=== PATIENT | female | born 1995 | race Caucasian/White ===

== ENCOUNTER 2016-08-18 23:14 | Emergency (ER) | payer OTHER ==
[~2016-08-18] VITALS: Ht 175.3 cm; Wt 118.2 kg
[2016-08-19 00:06] VITALS: BP 127/83; PULSE 91; RESP 16; O2SAT 99
[2016-08-19 00:45] LABS: APPEARANCE,URINE CLEAR (CLEAR,HAZY); COLOR,URINE YELLOW (YELLOW); OCCULT BLOOD,URINE MODERATE (NEGATIVE); PH,URINE 5.5 (5.0-8.0); UROBILINOGEN,URINE NORMAL (NORMAL)
--- NOTE | 2016-08-19 01:34 | ED.REPORT ---
HPI-Back Pain Under 40 Date of Service Aug 19, 2016 ED Provider: Avery Rodney MD Patient is a 21 year old female who reports to the ED complaining of lower back pain ongoing for the past month. She saw her pcp 3 weeks ago and was told her symptoms were due to menstrual cramps. She describes the pain as switching from the lower right to the lower left back and occasionally spasming . She denies any recent injury or accident that could have led to her symptoms and states that the pain does not feel musculoskeletal but more, "like an internal problem. " Pt has been stretching and taking ibuprofen to try to relieve symptoms with no improvement. She had an IUD inserted three days ago. Nursing Notes Stated Complaint: LOW BACK PAIN Chief Complaint: Back Pain or Injury Nursing Notes Reviewed: Yes Allergies: Uncoded Allergies: CODIENE (Allergy, Unknown, rash, 08/19/16) Scheduled PRN Cyclobenzaprine (Cyclobenzaprine) 10 Mg Tablet 10 MG PO TID PRN PRN Spasm General Time Seen by MD: 01:33 Chief Complaint Back pain Hx Obtained From: Patient Arrived By: Walk-in Sudden in Onset?: Yes Onset Occurred: More than a week ago... (1 month) Symptom Duration: Since onset Location: : Spinal lumbar area Radiation: : Does not radiate Severity: Current: Moderate Recent Healthcare: Recent doctor visit Similar Sx Previous: Yes Past Medical History Past Medical History denies Past Surgical History denies Smoking History Unknown if Ever Smoker Social History Other Social History: Good social support, Local resident Ambulatory Status Independent Review of Systems Musculoskeletal: Reports: Back pain (lumbar) Complete sys rev & neg: except as marked. Physical Exam Initial Vital Signs Vital Signs (First) Date Time Temp Pulse Resp B/P Pulse Ox O2 Delivery O2 Flow Rate FiO2 08/19/16 00:06 37.1 91 16 127/83 99 08/19/16 02:51 Room Air Initial VS: Reviewed, Vital signs normal Head / Eyes: Atraumatic, Normocephalic, PERRL ENT: Mucous membranes moist, Conjunctiva normal, No scleral icterus Neck: Supple, Non-tender, Full range of motion Respiratory: Breath sounds normal, Clear to auscultation, No respiratory distress Cardiovascular: Heart sounds normal, Intact distal pulses Abdomen / GI: Soft, Non-tender, No guarding, No rebound, No distention Lymphatic: No lymphadenopathy Extremities: Vascular intact, Neuro intact, No swelling, No tenderness Skin: Warm, Dry, No cyanosis Psychiatric: Mood/affect normal, Behavior normal, Normal thought content General/Constitutional: Awake, Alert, No acute distress, Well appearing, Well developed, Well hydrated, Well nourished, Cooperative, Not toxic appearing Back: No CVA tenderness Flank / Spine / Paraspinal: Positive: Lumbar spine tender... diffuse bilateral lower back tenderness S1 lower back tenderness no corine spine tenderness Interpretation & Diagnostics Lab Results Interpretation Test 08/19/16 00:32 Urine Color Yellow (YELLOW) Urine Appearance Clear (CLEAR,HAZY) Urine pH 5.5 (5.0-8.0) Urine Specific [place] 1.030 (1.003-1.035) Urine Protein Negativemg/dL (NEG,TRACE) Urine Glucose (UA) Negativemg/dL (NEGATIVE) Urine Ketones Negativemg/dL (NEGATIVE) Urine Occult Blood Moderate (NEGATIVE) Urine Nitrite Negative (NEGATIVE) Urine Bilirubin Negative (NEGATIVE) Urine Urobilinogen Normalmg/dL (NORMAL) Urine Leukocyte Esterase Negative (NEGATIVE) Urine RBC 3-10/hpf (0-2) Urine WBC 6-10/hpf (0-5) Urine Epithelial Cells Many/hpf (NONE-MOD) Urine Crystals None seen (NONE SEEN) Urine Bacteria None/hpf (NONE-FEW) Urine Hyaline Casts None/lpf (NONE) Urine Granular Casts None seen (NONE SEEN) Urine Waxy Casts None seen (NONE SEEN) Urine Red Blood Cell Casts None seen (NONE SEEN) Urine White Blood Cell Casts None seen (NONE SEEN) Urine Mucus None seen (None Seen) Urine Trichomonas None seen (NONE SEEN) Urine Yeast None (NONE SEEN) Urinalysis Comment Urine Culture Reflexed Indicated Lab Results Interpretation: Likely contaminated urine, await culture. Re-Eval/Medical Decision Med Decision/Clinical Course 21-year-old female with bilateral SI joint pain, well below the kidney areas. She does have 6-10 white cells per high-power field but too numerous to count epithelial cells and no bacteria seen, so we will await culture on that. Her history and physical exam are most consistent with musculoskeletal low back pain or SI joint pain. X-ray examination is normal. The pain preceded her IUD placement. It is also persisted well past her menstrual cycle. Ibuprofen and cyclobenzaprine. Follow up with primary doctor for further imaging if needed. Re-Evaluation/Progress : Time of Eval: 02:27 Patient Status: Condition unchanged Re-Evaluation/Progress Note: Pt rechecked. Pt is informed of diagnosis of lumbosacral pain and intended plan. All questions are addressed. Pt understands and agrees with the treatment plan. Counseled Regarding: Diagnosis, Lab results, Need for follow-up, When/why to return to ED Discharge & Departure Impression: Primary Impression: Lumbosacral strain Encounter type: initial encounter Qualified Code: S39.012A - Strain of muscle, fascia and tendon of lower back, initial encounter Disposition: Home All VS Reviewed: Yes Condition: Stable Patient Instructions: Low Back Strain (ED) Additional Instructions: X-ray examination looks good. No definite urinary tract infection, culture pending. The exact cause of your back pain is not known at this time but it appears to be musculoskeletal. Recommend physical therapy, continued ibuprofen , and further evaluation and treatment directed by your primary doctor. You may eventually need an MRI for this if the pain does not resolve with the above treatments. Referrals: Anjali Blanc PA-C (PCP) Scribe Attestation Portions of this note were transcribed by Maryana Avina. I, Dr. Rodney personally performed the history, physical exam and medical decision-making; I reviewed and confirmed the accuracy of the information in the transcribed note. Signed by: Tino Shaw, 08/19/16 [id number] copies to: Anjali Blanc PA-C, Howard L MD Aug 19, 2016 01:34 MARYANA AVINA Aug 19, 2016 01:46
[2016-08-19] MEDS ORDERED: CYCL10TA9 PO (02:47)
[2016-08-19 02:51] VITALS: BP 126/82; PULSE 90; RESP 18; O2SAT 99
--- NOTE | 2016-08-19 08:30 | DRSVH ---
PROCEDURE: X-RAY LUMBAR SPINE, 2 OR 3 VIEW INDICATIONS: 21 year-old female with low back pain for one month. TECHNIQUE: 3 views of the lumbar spine were acquired. COMPARISON: None. FINDINGS: Bones: 5 [id number] vertebrae are present. There is normal bony alignment. No vertebral body c ompression fractures. No disc or facet joint degeneration. No suspicious bony lesions. Soft tissues: Overlying bowel gas pattern is normal. Intrauterine contraceptive device is present. No suspicious soft tissue calcifications. IMPRESSION: No radiographic explanation for low back pain. Dictated by: Rodolfo August M.D. on 08/19/2016 at 8:28 Approved by: Rodolfo August M.D. on 08/19/2016 at 8:29
== END 2016-08-19 02:52 | disposition home or self-care (01) ==
LOC: SED 23:14
DX: S39.012A Strain of muscle, fascia and tendon of lower back, initial encounter (principal); X58.XXXA Exposure to other specified factors, initial encounter; Y93.89 Activity, other specified; Y92.89 Other specified places as the place of occurrence of the external cause; Y99.8 Other external cause status; M62.830 Muscle spasm of back; Z97.5 Presence of (intrauterine) contraceptive device